=== PATIENT | female | born 1965 | race Caucasian/White ===

== ENCOUNTER 2016-12-23 21:18 | Emergency (ER) | payer SELFPAY ==
[~2016-12-23] VITALS: Ht 167.6 cm; Wt 59.0 kg
[2016-12-23 21:33] VITALS: BP 128/74
--- NOTE | 2016-12-23 21:33 | Emergency Room Report ---
History of Present Illness General Chief Complaint: Alcohol Intoxication Source: Patient, EMS Present Illness HPI This is a 51-year-old female with history of alcohol abuse. Her friend called 911 because she was worried about her safety. Patient had expressed wanted to hurt herself. Per police officer booking, on arrival patient said that she went herself. She cut herself with a razor to the lateral aspect of her right forearm. Her friend said that she's been drinking for the last 3 days. Has not been eating. Here patient denies any other complaint. Said she's not suicidal or homicidal. Said that she sober now. Denies previous psychiatric admission. Police put her on a 5150 hold. Allergies: Coded Allergies: No Known Allergies (Unverified , 12/23/16) Patient History Past Medical History: see triage record, old chart reviewed Past Surgical History: other Family History: none Social History: ETOH Now: No Immunizations: other Reviewed Nursing Documentation: PMH: Agreed, PSxH: Agreed Review of Systems ENT: Denies: sore throat Cardiovascular: Denies: chest pain, palpitations Gastrointestinal/Abdominal: Denies: nausea, vomiting, diarrhea Musculoskeletal: Denies: back problems Skin: Denies: rash Neurological: Denies: ZUNIGA, seizures All Other Systems: negative except mentioned in HPI Physical Exam Vital Signs Date Time Temp Pulse Resp B/P Pulse Ox O2 Delivery O2 Flow Rate FiO2 12/23/16 21:14 97.0 18 16 130/80 98 Room Air vitals normal Sp02 EP Interpretation: reviewed, normal General Appearance: alert/responsive, no apparent distress, non-toxic, other - Intoxicated Head: normocephalic, atraumatic Eyes: PERRL, EOMI ENT: oropharynx normal Neck: supple/symm/no masses Respiratory: effort normal, no rhonchi, no wheezing Cardiovascular: no murmur, gallop, rub Gastrointestinal: non-tender, no mass, non-distended, no rebound/guarding, normal bowel sounds Musculoskeletal: gait & station normal, other - Right forearm: Superficial abrasion to the lateral aspect of the forearm. Nothing to be sutured. Neurologic: oriented x3, sensory intact, motor strength/tone normal Skin: no rash, normal palpation Medical Decision Making Diagnostic Impression: Primary Impression: Acute alcoholic intoxication Qualified Codes: F10.929 - Alcohol use, unspecified with intoxication, unspecified Additional Impression: Suicidal ideation ER Course Patient with acute alcohol intoxication. Questionable depression/suicidal thoughts. I do not think that she tried to cut herself because she is right- handed and the wound is on the lateral aspect of the right forearm. We'll observe the patient until clinical sobriety. Will check lab tests and once she is medically clear, we'll get psychiatric evaluation. Patient slept through the night without a problem. She is cooperative. Not suicidal. Because she is on a 5150 hold by police, we'll get psychiatric evaluation. She is medically clear. Lab Results Impression labs with elevated alcohol. Last Vital Signs Date Time Temp Pulse Resp B/P Pulse Ox O2 Delivery O2 Flow Rate FiO2 12/23/16 21:14 97.0 18 16 130/80 98 Room Air Status: improved Disposition: XFER TO PSYCH HOSP/UNIT Condition: Stable KAREN CARRANZA M.D. Dec 23, 2016 21:33
[2016-12-23] MEDS ORDERED: Haloperidol 5mg/ml Inj IM ONE (21:45)
[2016-12-23 22:06] VITALS: BP 128/74
[2016-12-23 22:33] VITALS: BP 122/72
[2016-12-23 22:37] VITALS: BP 122/72
[2016-12-23 22:37] LABS: APPEARANCE,URINE CLEAR; KETONES,URINE 1+ (NEGATIVE); LEUKOCYTE ESTERASE ,URINE NEGATIVE (NEGATIVE); NITRITE,URINE NEGATIVE (NEGATIVE); PH,URINE 5 (4.5-8.0); PROTEIN,URINE 1+ (NEGATIVE); UROBILINOGEN,URINE NORMAL MG/DL (0.0-1.0)
[2016-12-23 22:39] LABS: BASOPHILS % (AUTO) 1.9 % (0.0-2.0); EOSINOPHILS % (AUTO) 2.3 % (0.0-3.0); LYMPHOCYTES % (AUTO) 32.7 % (20.0-45.0); MEAN CORPUSCULAR HEMOGLOBIN 30.6 PG (27.0-31.0); MEAN CORPUSCULAR HGB CONC 34.2 G/DL (32.0-36.0); MEAN CORPUSCULAR VOLUME 89 FL (80-99); MEAN PLATELET VOLUME 5.1 FL (6.5-10.1); MONOCYTES % (AUTO) 9.7 % (1.0-10.0); NEUTROPHILS % (AUTO) 53.4 % (45.0-75.0); PLATELET COUNT 325 K/UL (150-450); RED BLOOD COUNT 4.96 M/UL (4.20-5.40); RED CELL DISTRIBUTION WIDTH 13.8 % (11.6-14.8); WHITE BLOOD COUNT 6.9 K/UL (4.8-10.8)
[2016-12-23 22:47] LABS: ACETAMINOPHEN < 10 ug/mL (10-30); ALANINE AMINOTRANSFERASE 16 U/L (3-33); ALBUMIN/GLOBULIN RATIO 1.3 (1.0-2.7); ALCOHOL 240 mg/dL; ANION GAP 19 (5-15); ASPARTATE AMINO TRANSFERASE 27 U/L (5-40); CALCIUM 8.8 mg/dL (8.6-10.2); CARBON DIOXIDE 20 mEQ/L (20-30); CHLORIDE 106 mEQ/L (98-107); CREATININE 0.7 mg/dL (0.5-0.9); GLOMERULAR FILTRATION RATE > 60 mL/min (>60); HEMOLYSIS 4; SODIUM 145 mEQ/L (135-145); TOTAL PROTEIN 7.9 g/dL (6.6-8.7)
[2016-12-23 22:55] LABS: RBC,URINE 0-2 /HPF (0 - 2); WBC,URINE 0-2 /HPF (0 - 2)
[2016-12-23 22:56] LABS: BACTERIA,URINE FEW /HPF; SQUAMOUS EPITHELIAL CELL,UR OCCASIONAL /LPF (NONE/OCC)
[2016-12-23 23:18] VITALS: BP 120/65
[2016-12-24] VITALS (9 sets, daily range): BP systolic 124–156; BP diastolic 60–79
[2016-12-24] MEDS ORDERED: Haloperidol 5mg/ml Inj IM ONE (10:00)
== END 2016-12-24 12:40 ==
LOC: EDBD 21:18 → EMR 21:38
DX: F10.929 Alcohol use, unspecified with intoxication, unspecified (principal); R45.851 Suicidal ideations
CPT/HCPCS: 36415; 80053; 80300; 81003; 81025; 85025; 96372; 99285; G0480; J1630; 80329; 96374